=== PATIENT | male | born 1960 | race Caucasian/White ===

== ENCOUNTER 2022-03-14 17:56 | Observation (INO) ==
[2022-03-14] MEDS ORDERED: methylPREDNISolone 125 MG/2 ML VIAL IVP ONE (18:25)
[2022-03-14] MEDS ORDERED: Azithromycin 500 MG in 0.9 % Sodium Chloride 250 ML IVPB ONE (18:25)
[2022-03-14] MEDS ORDERED: Ipratropium/Albuterol Neb 3 ML IH ONE ×2 (18:25→19:22)
[2022-03-14 18:57] LABS: Basophils # 0.1 K/mcL (0.0-0.2); Eosinophils # 0.2 K/mcL (0.0-0.6); Eosinophils % 4.3 %; Hematocrit 54.2 % (37.5-50.1); Hemoglobin 16.4 g/dL (12.9-16.9); Immature Granulocytes % 0.2 % (0-4); Lymphocytes # 1.2 K/mcL (0.6-4.6); Lymphocytes % 25.1 %; Mean Corpuscular HGB Conc 30.3 g/dL (31.6-35.5); Mean Corpuscular Hemoglobin 29.9 pg (28.0-33.3); Mean Corpuscular Volume 98.7 fL (83.0-100.0); Mean Platelet Volume 9.6 fL (9.4-12.4); Monocytes # 0.5 K/mcL (0.0-1.3); Monocytes % 10.4 %; Neutrophils # 2.9 K/mcL (1.6-8.9); Platelet Count 219 K/mcL (140-400); Red Blood Count 5.49 M/mcL (4.19-5.50); White Blood Count 4.8 K/mcL (4.3-11.1)
[2022-03-14 19:05] LABS: VBG HCO3 35 mEq/L (21-27); VBG PCO2 70 mmHg (41-51); VBG PH 7.31 pH Units (7.32-7.42); VBG PO2 47 mmHg (25-50)
[2022-03-14 19:29] LABS: BUN/Creatinine Ratio 25 (6-26); Blood Urea Nitrogen 20 mg/dL (8-23); Calcium 9.4 mg/dL (8.6-10.3); Carbon Dioxide 36 mEq/L (23-29); Glucose 102 mg/dL (70-105); Troponin I 0.05 ng/mL (< 0.04); eGFR For African Americans > 60 (> 60); eGFR For Non-African Americans > 60 (> 60)
[2022-03-14 19:33] LABS: Influenza A PCR Negative (Negative); Influenza B PCR Negative (Negative); Resp. Syncytial Virus PCR Negative (Negative); SARS-CoV-2 by PCR (In House) Negative (Negative)
[2022-03-14] MEDS ORDERED: Aspirin 81 MG TAB.CHEW PO STA (19:39)
[2022-03-14 19:50] LABS: Chloride 99 mEq/L (98-107); Osmolality,Calculated 293 (280-300); Potassium 4.2 mEq/L (3.5-5.1); Sodium 140 mEq/L (136-145)
[2022-03-14] MEDS ORDERED: Melatonin 3 MG TABLET PO PRN (20:51)
[2022-03-14] MEDS ORDERED: Naloxone 0.4 MG/ML INJ IVP PRN (20:51)
[2022-03-14] MEDS ORDERED: Nicotine 14 MG PATCH.TD24 TD PRN (21:30)
[2022-03-14] MEDS ORDERED: *HR* Heparin 5,000 UNIT/ML VIAL IVP ONE (22:04)
[2022-03-14] MEDS ORDERED: SULFUR HEXAFLUORIDE MICROSPHR 25 MG VIAL IVP PRN (22:04)
[2022-03-14] MEDS ORDERED: *HR* Heparin 5,000 UNIT/ML VIAL IVP PRN ×2 (22:04)
[2022-03-14] MEDS ORDERED: Heparin 25,000UNIT/250ML 1/2NS 25,000 UNIT/250 ML IV.SOLN IVC SCH (22:15)
[2022-03-14] MEDS: Ipratropium/Albuterol Neb 3 ML IH SCH (23:33)
[2022-03-14 23:41] LABS: Hematocrit 52.5 % (37.5-50.1); Hemoglobin 16.2 g/dL (12.9-16.9); Mean Corpuscular HGB Conc 30.9 g/dL (31.6-35.5); Mean Corpuscular Hemoglobin 30.4 pg (28.0-33.3); Mean Corpuscular Volume 98.5 fL (83.0-100.0); Mean Platelet Volume 9.8 fL (9.4-12.4); Platelet Count 212 K/mcL (140-400); Red Blood Count 5.33 M/mcL (4.19-5.50); Red Cell Distribution Width 14.2 % (11.5-14.5); White Blood Count 4.4 K/mcL (4.3-11.1)
[2022-03-14 23:50] LABS: INR 1.1; Prothrombin Time 12.8 Seconds (9.4-12.1)
[2022-03-14 23:51] LABS: VBG HCO3 35 mEq/L (21-27); VBG PCO2 66 mmHg (41-51); VBG PH 7.33 pH Units (7.32-7.42); VBG PO2 111 mmHg (25-50)
[2022-03-14 23:58] LABS: Heparin anti-factor XA UFH 1.03 IU/mL (0.30-0.70)
[2022-03-15] MEDS: Ipratropium/Albuterol Neb 3 ML IH SCH ×4 (04:02→22:35)
[2022-03-15 05:37] LABS: Hematocrit 53.8 % (37.5-50.1); Hemoglobin 16.2 g/dL (12.9-16.9); Immature Granulocytes % 0.5 % (0-4); Lymphocytes # 0.2 K/mcL (0.6-4.6); Lymphocytes % 3.3 %; Mean Corpuscular HGB Conc 30.1 g/dL (31.6-35.5); Mean Corpuscular Volume 99.6 fL (83.0-100.0); Mean Platelet Volume 9.6 fL (9.4-12.4); Monocytes % 0.3 %; Neutrophils # 6.3 K/mcL (1.6-8.9); Platelet Count 202 K/mcL (140-400); Segmented Neutrophils % 95.9 %; White Blood Count 6.6 K/mcL (4.3-11.1)
[2022-03-15 05:43] LABS: Prothrombin Time 11.5 Seconds (9.4-12.1)
[2022-03-15 05:45] LABS: Activated Partial Thrombo Time 57.4 Seconds (26.0-36.0)
[2022-03-15 05:56] LABS: Alanine Aminotransferase 12 Units/L (7-52); Albumin 3.6 g/dL (3.5-5.7); Albumin/Globulin Ratio 1.3 (1.1-2.2); Alkaline Phosphatase 60 Units/L (34-104); Aspartate Amino Transferase 17 Units/L (13-39); BUN/Creatinine Ratio 23 (6-26); Bilirubin,Total 0.7 mg/dL (0.3-1.0); Blood Urea Nitrogen 20 mg/dL (8-23); Calcium 9.1 mg/dL (8.6-10.3); Carbon Dioxide 34 mEq/L (23-29); Chloride 102 mEq/L (98-107); Chol/HDL Ratio 3.4 (0-4.9); Cholesterol 161 mg/dL (< 200); Globulin 2.7 g/dL (2.4-3.5); Glucose 158 mg/dL (70-105); HDL Cholesterol 47 mg/dL (40-59); LDL Cholesterol,Calculated 102 mg/dL (< 100); Magnesium 1.7 mg/dL (1.6-2.6); Osmolality,Calculated 294 (280-300); Potassium 4.8 mEq/L (3.5-5.1); Sodium 139 mEq/L (136-145); Total Protein 6.3 g/dL (6.4-8.9); Triglycerides 58 mg/dL (< 150); Troponin I 0.03 ng/mL (< 0.04); eGFR For African Americans > 60 (> 60); eGFR For Non-African Americans > 60 (> 60)
[2022-03-15] MEDS: Aspirin 81 MG TAB.CHEW PO SCH (08:57)
[2022-03-15] MEDS ORDERED: predniSONE 20 MG TABLET PO SCH (09:00)
[2022-03-15] MEDS: MethylPREDNISolone 40 MG/ML VIAL IVP SCH (17:45)
[2022-03-15] MEDS ORDERED: Azithromycin 250 MG TABLET PO SCH (18:00)
[2022-03-16] MEDS: Ipratropium/Albuterol Neb 3 ML IH SCH ×3 (03:43→15:34)
[2022-03-16] MEDS: MethylPREDNISolone 40 MG/ML VIAL IVP SCH (05:27)
[2022-03-16] MEDS ORDERED: Metoprolol XL (24 HR) Succ 50 MG TAB.ER.24H PO SCH (09:00)
[2022-03-16] MEDS: Aspirin 81 MG TAB.CHEW PO SCH (10:28)
[2022-03-16 12:43] VITALS: BP 107/69; PULSE 99; TEMP 97.8
[2022-03-16 15:37] VITALS: O2SAT 90
== END 2022-03-16 17:24 | disposition home or self-care (01) ==
LOC: EMEROOARM 17:56 → 2ANU 17:56 → SUATTDRO 22:27 → 2ANU 03-15
PROVIDERS: ADMIT Internal Medicine; ATTEND Internal Medicine